=== PATIENT | female | born 1960 | race Caucasian/White ===

== ENCOUNTER 2019-12-15 10:08 | Emergency (ER) | payer BC ==
[~2019-12-15] VITALS: Ht 162.6 cm; Wt 104.5 kg
[2019-12-15] MEDS ORDERED: ondansetron/PF 4mg/2ml inj IV ONE (10:15)
[2019-12-15] MEDS ORDERED: normal saline 1000ML IV soln IVB ONE (10:15)
[2019-12-15 11:01] LABS: CLARITY,URINE CLEAR (Clear); COLOR,URINE YELLOW (Yellow); GLUCOSE, URINE NEGATIVE (Neg); KETONES,URINE NEGATIVE (Neg); LEUKOCYTE ESTERASE ,URINE NEGATIVE (Neg); NITRITES, URINE NEGATIVE (Neg); OCCULT BLOOD,URINE NEGATIVE (Neg); PROTEIN,URINE NEGATIVE (Neg); UROBILINOGEN,URINE 0.2 E.U/dL (0.2-1.0)
[2019-12-15 11:04] LABS: UA COLLECTION TYPE CLN CATCH MIDSTREAM
[2019-12-15 11:25] LABS: HEMOGLOBIN 12.6 g/dl (12.0-16.0); MEAN PLATELET VOLUME 7.2 FL (7.4-10.4)
[2019-12-15 11:26] LABS: ALANINE AMINOTRANSFERASE 19 U/L (12-78); ALBUMIN 3.7 G/DL (3.4-5.0); ALKALINE PHOSPHATASE 88 IU/L (46-116); ANION GAP 10 (8-16); ASPARTATE AMINO TRANSFERASE 14 U/L (10-37); BILIRUBIN,TOTAL 0.6 MG/DL (0.1-1.0); BLOOD UREA NITROGEN 12 MG/DL (7-18); BUN/CREATININE RATIO 12.2 (6.6-38.0); CHLORIDE 102 MMOL/L (99-107); CREATININE 0.98 MG/DL (0.40-0.90); GLUCOSE 102 MG/DL (70-104); LIPASE 53 U/L (73-393); POTASSIUM 3.6 MMOL/L (3.5-5.1); SODIUM 140 MMOL/L (135-145); TOTAL CARBON DIOXIDE 28.5 MMOL/L (24-32); TOTAL PROTEIN 7.4 G/DL (6.4-8.2); eGFR 58 ML/MIN
[2019-12-15 11:27] LABS: BASOPHILS % (AUTO) 0.4 % (0-1); EOSINOPHILS # (AUTO) 0.1 X10'3 (0-0.9); EOSINOPHILS % (AUTO) 0.8 % (0-6); HEMATOCRIT 37.4 % (35.0-45.0); LYMPHOCYTES # (AUTO) 1.9 X10'3 (1.1-4.8); LYMPHOCYTES % (AUTO) 22.3 % (21-51); MEAN CORPUSCULAR HEMOGLOBIN 31.8 PG (27.0-31.0); MEAN CORPUSCULAR HGB CONC 33.6 g/dL (33.0-36.5); MEAN CORPUSCULAR VOLUME 94.7 FL (78-98); MONOCYTES # (AUTO) 0.7 X10'3 (0-0.9); MONOCYTES % (AUTO) 8.6 % (2-12); NEUTROPHILS # (AUTO) 5.7 X10'3 (1.8-7.7); NEUTROPHILS % (AUTO) 67.9 % (42-75); PLATELET COUNT 257 X10'3 (140-440); RED BLOOD COUNT 3.95 X10'6 (4.20-5.60); RED CELL DISTRIBUTION WIDTH 13.3 % (11.5-14.5); WHITE BLOOD COUNT 8.3 X10'3 (4.5-11.0)
[2019-12-15] MEDS ORDERED: ONDA4TAB6 PO (11:33)
[2019-12-15] MEDS ORDERED: HYDR-4383 PO (11:33)
[2019-12-15] MEDS ORDERED: AMOX-422 PO (11:33)
[2019-12-15 12:16] VITALS: BP 148/77
== END 2019-12-15 12:48 | disposition home or self-care (01) ==
LOC: ER 10:08
DX: K57.92 Diverticulitis of intestine, part unspecified, without perforation or abscess without bleeding (principal); R10.32 Left lower quadrant pain; Z98.890 Other specified postprocedural states; Z79.2 Long term (current) use of antibiotics; Z79.899 Other long term (current) drug therapy
CPT/HCPCS: 36415; 74176; 80053; 81003; 83690; 85025; 96361; 96374; 99284; J2405; J7030

== ENCOUNTER 2020-01-06 09:50 | Inpatient (IN) | payer BC ==
[~2020-01-06] VITALS: Ht 160 cm; Wt 101.8 kg
[~2020-01-06 09:50] MED LIST: HYDR-4383 PO; ONDA4TAB6 PO
[2020-01-06] MEDS ORDERED: metroNIDAZOLE-Flagyl 750mg/NS 150 ML IV ONE (10:25)
[2020-01-06] MEDS ORDERED: normal saline 1000ML IV soln IVB ONE (10:25)
[2020-01-06] MEDS ORDERED: ciprofloxacin lact 400MG/200ML 200 ML IV ONE (10:25)
[2020-01-06 10:36] LABS: CLARITY,URINE CLEAR (Clear); COLOR,URINE YELLOW (Yellow); GLUCOSE, URINE NEGATIVE (Neg); KETONES,URINE NEGATIVE (Neg); LEUKOCYTE ESTERASE ,URINE NEGATIVE (Neg); NITRITES, URINE NEGATIVE (Neg); OCCULT BLOOD,URINE NEGATIVE (Neg); PROTEIN,URINE NEGATIVE (Neg); UROBILINOGEN,URINE 0.2 E.U/dL (0.2-1.0)
[2020-01-06 10:41] LABS: UA COLLECTION TYPE CLN CATCH MIDSTREAM
[2020-01-06] MEDS: diatr meglu/diatrizoate 30ml oral sol.-(3 dose) bottle PO SCH ×3 (10:43→11:55)
[2020-01-06 11:10] LABS: BASOPHILS % (AUTO) 0.7 % (0-1); EOSINOPHILS # (AUTO) 0.1 X10'3 (0-0.9); EOSINOPHILS % (AUTO) 2.2 % (0-6); HEMATOCRIT 40.8 % (35.0-45.0); HEMOGLOBIN 13.5 g/dl (12.0-16.0); LYMPHOCYTES # (AUTO) 1.3 X10'3 (1.1-4.8); LYMPHOCYTES % (AUTO) 23.6 % (21-51); MEAN CORPUSCULAR HEMOGLOBIN 31.5 PG (27.0-31.0); MEAN CORPUSCULAR HGB CONC 33.1 g/dL (33.0-36.5); MEAN CORPUSCULAR VOLUME 95.3 FL (78-98); MEAN PLATELET VOLUME 7.7 FL (7.4-10.4); MONOCYTES # (AUTO) 0.4 X10'3 (0-0.9); MONOCYTES % (AUTO) 6.8 % (2-12); NEUTROPHILS # (AUTO) 3.6 X10'3 (1.8-7.7); NEUTROPHILS % (AUTO) 66.7 % (42-75); PLATELET COUNT 299 X10'3 (140-440); RED BLOOD COUNT 4.28 X10'6 (4.20-5.60); RED CELL DISTRIBUTION WIDTH 13.2 % (11.5-14.5); WHITE BLOOD COUNT 5.4 X10'3 (4.5-11.0)
[2020-01-06 11:31] LABS: ALANINE AMINOTRANSFERASE 24 U/L (12-78); ALBUMIN/GLOBULIN RATIO 1.1 (1.1-1.5); ALKALINE PHOSPHATASE 80 IU/L (46-116); ANION GAP 9 (8-16); ASPARTATE AMINO TRANSFERASE 18 U/L (10-37); BILIRUBIN,TOTAL 0.4 MG/DL (0.1-1.0); BLOOD UREA NITROGEN 10 MG/DL (7-18); BUN/CREATININE RATIO 12.3 (6.6-38.0); CALCIUM 9.3 MG/DL (8.5-10.1); CHLORIDE 105 MMOL/L (99-107); CREATININE 0.81 MG/DL (0.40-0.90); GLUCOSE 111 MG/DL (70-104); LIPASE 63 U/L (73-393); POTASSIUM 3.7 MMOL/L (3.5-5.1); SODIUM 141 MMOL/L (135-145); TOTAL CARBON DIOXIDE 26.8 MMOL/L (24-32); TOTAL PROTEIN 7.7 G/DL (6.4-8.2); eGFR 72 ML/MIN
[2020-01-06] MEDS ORDERED: magnesium hydroxide 30ml (MOM) UD suspension PO PRN (12:05)
[2020-01-06] MEDS ORDERED: magnesium 4gm in 100ml NS 100 ML IV PRN (12:05)
[2020-01-06] MEDS ORDERED: mag hydrox/Alum hydrox/simeth 30ml oral suspension PO PRN (12:05)
[2020-01-06] MEDS ORDERED: magnesium 2GM in 50ml NS 50 ML IV PRN (12:05)
[2020-01-06] MEDS ORDERED: potassium CL 10mEq/100ml bag 100 ML IV PRN ×2 (12:05)
[2020-01-06] MEDS ORDERED: potassium Cl 20 mEq SR tablet PO PRN ×2 (12:05)
[2020-01-06] MEDS ORDERED: HYOS-26 SL (12:44)
[2020-01-06] MEDS ORDERED: ONDA4TAB12 PO (12:44)
[2020-01-06] MEDS ORDERED: ZINC100T2 PO (12:44)
[2020-01-06] MEDS ORDERED: CYAN500T64 PO (12:44)
[2020-01-06] MEDS ORDERED: POTA99TA18 PO (12:44)
[2020-01-06] MEDS ORDERED: iohexol 300mg/ml 100ml inj. ONE (12:47)
[2020-01-06] MEDS: normal saline 1000ml 1,000 ML IV SCH ×2 (13:25→22:05)
--- NOTE | 2020-01-06 15:28 | NUR ---
Attempted to call report, RN in room, RN to call back.
--- NOTE | 2020-01-06 15:35 | NUR ---
Received report from [facility] per phone call and had the opportunity to ask questions. Will assume pt care once on Med/Surg.
--- NOTE | 2020-01-06 15:50 | NUR ---
Pt arrived to unit via w/c, to Room 354C. Pt assessed, A&O x4, no s/sx distress. Pt oriented to room.
[2020-01-06 16:14] VITALS: BP 134/57
[2020-01-06] MEDS: hyoscyamine 0.125mg TAB.SUBL SL PRN (16:29)
[2020-01-06] MEDS: metroNIDAZOLE-Flagyl 500mg/NS 100 ML IV SCH (16:30)
[2020-01-06 18:00] VITALS: BP 143/72
--- NOTE | 2020-01-06 18:39 | NUR ---
Problems reprioritized. Patient report given, questions answered & plan of care reviewed with Halle FISHER.
--- NOTE | 2020-01-06 19:00 | NUR ---
Patient in room [facility]. I have received report from PHILLIP Camara and had the opportunity to ask questions and assume patient care.
[2020-01-06] MEDS: K and/or MAG REPLACEMENT MC SCH (20:00)
[2020-01-06] MEDS: enoxaparin 40mg/0.4ml syringe SQ SCH (20:49)
[2020-01-06] MEDS: ciprofloxacin lact 400MG/200ML 200 ML IV SCH (20:49)
[2020-01-06] MEDS ORDERED: haloperidol 5mg tablet PO PRN (21:15)
[2020-01-06] MEDS ORDERED: LORazepam 1 MG tablet PO PRN (21:15)
[2020-01-06] MEDS ORDERED: haloperidol lactate 5mg/ml inj IM PRN (21:15)
[2020-01-06] MEDS ORDERED: LORazepam 2 mg/ml vial IV PRN (21:15)
[2020-01-06] MEDS: thiamine inj. 100 MG, MVI, adult No.4 with vit. K 10 ML in dextrose 5% water 500ml 500 ML IV SCH ×3 (22:17)
[2020-01-06] MEDS ORDERED: thiamine inj. 100 MG in normal saline 100ml IV soln 100 ML IV ONE (23:00)
[2020-01-07] VITALS: BP 105/60
[2020-01-07] MEDS: hyoscyamine 0.125mg TAB.SUBL SL PRN (00:35)
[2020-01-07] MEDS: metroNIDAZOLE-Flagyl 500mg/NS 100 ML IV SCH ×3 (00:38→16:44)
[2020-01-07] MEDS: acetaminophen 325mg tablet PO PRN ×2 (04:14→22:10)
[2020-01-07] MEDS: normal saline 1000ml 1,000 ML IV SCH ×2 (05:09→16:44)
--- NOTE | 2020-01-07 06:00 | NUR ---
Patient in room [facility]. I have received report from PHILLIP Neri and had the opportunity to ask questions and assume patient care.
[2020-01-07 06:21] LABS: BASOPHILS % (AUTO) 0.8 % (0-1); EOSINOPHILS # (AUTO) 0.1 X10'3 (0-0.9); EOSINOPHILS % (AUTO) 2.9 % (0-6); HEMATOCRIT 34.5 % (35.0-45.0); HEMOGLOBIN 11.6 g/dl (12.0-16.0); LYMPHOCYTES # (AUTO) 1.4 X10'3 (1.1-4.8); MEAN CORPUSCULAR HEMOGLOBIN 31.9 PG (27.0-31.0); MEAN CORPUSCULAR HGB CONC 33.6 g/dL (33.0-36.5); MEAN PLATELET VOLUME 7.4 FL (7.4-10.4); MONOCYTES # (AUTO) 0.5 X10'3 (0-0.9); MONOCYTES % (AUTO) 9.6 % (2-12); NEUTROPHILS # (AUTO) 2.7 X10'3 (1.8-7.7); NEUTROPHILS % (AUTO) 57.7 % (42-75); PLATELET COUNT 238 X10'3 (140-440); RED BLOOD COUNT 3.63 X10'6 (4.20-5.60); RED CELL DISTRIBUTION WIDTH 13.1 % (11.5-14.5); WHITE BLOOD COUNT 4.7 X10'3 (4.5-11.0)
--- NOTE | 2020-01-07 06:38 | NUR ---
Problems reprioritized. Patient report given, questions answered & plan of care reviewed with PHILLIP Cabello.
[2020-01-07 06:50] LABS: ALANINE AMINOTRANSFERASE 16 U/L (12-78); ALKALINE PHOSPHATASE 59 IU/L (46-116); AMYLASE 49 U/L (25-115); ANION GAP 6 (8-16); ASPARTATE AMINO TRANSFERASE 12 U/L (10-37); BILIRUBIN,TOTAL 0.3 MG/DL (0.1-1.0); BLOOD UREA NITROGEN 4 MG/DL (7-18); BUN/CREATININE RATIO 5.3 (6.6-38.0); CALCIUM 8.4 MG/DL (8.5-10.1); CHLORIDE 109 MMOL/L (99-107); CREATININE 0.76 MG/DL (0.40-0.90); GLUCOSE 100 MG/DL (70-104); LIPASE 51 U/L (73-393); POTASSIUM 3.6 MMOL/L (3.5-5.1); SODIUM 141 MMOL/L (135-145); TOTAL CARBON DIOXIDE 25.9 MMOL/L (24-32); eGFR 77 ML/MIN
[2020-01-07] MEDS: cyanocobalamin 500mcg tablet PO SCH (07:25)
[2020-01-07] MEDS: thiamine inj. 100 MG, MVI, adult No.4 with vit. K 10 ML in dextrose 5% water 500ml 500 ML IV SCH ×3 (07:26)
[2020-01-07 08:00] VITALS: BP 133/67
[2020-01-07] MEDS: K and/or MAG REPLACEMENT MC SCH ×2 (08:00→19:59)
[2020-01-07] MEDS: ciprofloxacin lact 400MG/200ML 200 ML IV SCH ×2 (09:49→19:30)
[2020-01-07] MEDS: lactobacillus rhamnosus 10,000 MMU CELLS/CAPSULE PO SCH ×2 (09:50→19:29)
[2020-01-07 12:00] VITALS: BP 148/92
[2020-01-07 14:02] LABS: C DIFF ANTIGEN NEGATIVE (NEGATIVE); C DIFF SPECIMEN=DIARRHEA? ACCEPTABLE; C DIFFICILE TOXINS A&B NEGATIVE (Neg)
--- NOTE | 2020-01-07 16:53 | NUR ---
paged regarding converting infuvite to oral form.
[2020-01-07 18:15] VITALS: BP 138/72
--- NOTE | 2020-01-07 18:39 | NUR ---
Patient in room [facility]. I have received report from PHILLIP Cabello and had the opportunity to ask questions and assume patient care.
--- NOTE | 2020-01-07 18:39 | NUR ---
Patient in room [facility]. I have received report from PHILLIP Cabello and had the opportunity to ask questions and assume patient care.
--- NOTE | 2020-01-07 18:43 | NUR ---
Problems reprioritized. Patient report given, questions answered & plan of care reviewed with PHILLIP Neri.
[2020-01-07] MEDS: enoxaparin 40mg/0.4ml syringe SQ SCH (19:29)
[2020-01-08] MEDS: metroNIDAZOLE-Flagyl 500mg/NS 100 ML IV SCH ×2 (00:08→07:10)
[2020-01-08 00:23] VITALS: BP 130/58
[2020-01-08] MEDS: normal saline 1000ml 1,000 ML IV SCH (04:15)
[2020-01-08 06:08] LABS: BASOPHILS # (AUTO) 0.1 X10'3 (0-0.2); BASOPHILS % (AUTO) 1.1 % (0-1); EOSINOPHILS # (AUTO) 0.1 X10'3 (0-0.9); EOSINOPHILS % (AUTO) 2.4 % (0-6); HEMATOCRIT 33.7 % (35.0-45.0); HEMOGLOBIN 11.3 g/dl (12.0-16.0); LYMPHOCYTES # (AUTO) 1.6 X10'3 (1.1-4.8); LYMPHOCYTES % (AUTO) 32.3 % (21-51); MEAN CORPUSCULAR HEMOGLOBIN 31.3 PG (27.0-31.0); MEAN CORPUSCULAR HGB CONC 33.4 g/dL (33.0-36.5); MEAN CORPUSCULAR VOLUME 93.8 FL (78-98); MEAN PLATELET VOLUME 7.7 FL (7.4-10.4); MONOCYTES # (AUTO) 0.5 X10'3 (0-0.9); MONOCYTES % (AUTO) 9.5 % (2-12); NEUTROPHILS # (AUTO) 2.7 X10'3 (1.8-7.7); NEUTROPHILS % (AUTO) 54.7 % (42-75); PLATELET COUNT 227 X10'3 (140-440)
[2020-01-08] MEDS: acetaminophen 325mg tablet PO PRN (06:17)
[2020-01-08 06:26] LABS: ALANINE AMINOTRANSFERASE 17 U/L (12-78); ALBUMIN 2.9 G/DL (3.4-5.0); ALKALINE PHOSPHATASE 56 IU/L (46-116); AMYLASE 48 U/L (25-115); ANION GAP 6 (8-16); ASPARTATE AMINO TRANSFERASE 9 U/L (10-37); BILIRUBIN,TOTAL 0.3 MG/DL (0.1-1.0); BLOOD UREA NITROGEN 5 MG/DL (7-18); BUN/CREATININE RATIO 7.2 (6.6-38.0); CALCIUM 8.1 MG/DL (8.5-10.1); CHLORIDE 111 MMOL/L (99-107); CREATININE 0.69 MG/DL (0.40-0.90); GLUCOSE 90 MG/DL (70-104); LIPASE < 50 U/L (73-393); PHOSPHORUS 4.1 MG/DL (2.3-4.5); POTASSIUM 3.3 MMOL/L (3.5-5.1); SODIUM 143 MMOL/L (135-145); TOTAL CARBON DIOXIDE 26.4 MMOL/L (24-32); TOTAL PROTEIN 5.8 G/DL (6.4-8.2); eGFR 86 ML/MIN
--- NOTE | 2020-01-08 06:34 | NUR ---
Student documentation: I have reviewed and agree with all interventions, assessments performed and documented by Fabio Nicole Student Nurse. Student Medication Administration: For this medication-pass time frame, all medication were reviewed, dispensed, administered and documented per hospital policy by Fabio Nicole Student Nurse.
--- NOTE | 2020-01-08 06:34 | NUR ---
Problems reprioritized. Patient report given, questions answered & plan of care reviewed with PHILLIP Cabello.
--- NOTE | 2020-01-08 06:49 | NUR ---
Patient in room [facility]. I have received report from PHILLIP Neri and had the opportunity to ask questions and assume patient care.
[2020-01-08] MEDS: lactobacillus rhamnosus 10,000 MMU CELLS/CAPSULE PO SCH (07:10)
[2020-01-08] MEDS: cyanocobalamin 500mcg tablet PO SCH (07:10)
[2020-01-08 08:00] VITALS: BP 127/58
[2020-01-08] MEDS: thiamine inj. 100 MG, MVI, adult No.4 with vit. K 10 ML in dextrose 5% water 500ml 500 ML IV SCH ×3 (08:00)
[2020-01-08] MEDS: K and/or MAG REPLACEMENT MC SCH (08:00)
[2020-01-08] MEDS: ciprofloxacin lact 400MG/200ML 200 ML IV SCH (08:25)
--- NOTE | 2020-01-08 08:37 | NUR ---
Dr Mendez rounded gave OK for Dc with PO ABX. Hospitalist will follow up
[2020-01-08] MEDS ORDERED: LEVO750T46 PO (10:54)
[2020-01-08] MEDS ORDERED: LACT1CAP26 PO (10:54)
[2020-01-08] MEDS ORDERED: MULT-1085 PO (10:54)
[2020-01-08] MEDS ORDERED: METR-159 PO (10:54)
[2020-01-08] MEDS ORDERED: THIA50TA10 PO (10:54)
[2020-01-08] MEDS ORDERED: FOLI0.4T2 PO (10:54)
[2020-01-08 12:28] VITALS: BP 111/64
--- NOTE | 2020-01-08 13:20 | NUR ---
patient discharged home into the care of family. Patient alert, oriented, and appropriate for discharge. Patient given instructions on how to care for diverticulitis and to follow up with primary care provider. Patient left with all belongings. Patient IV removed. Patient verbalized understanding of discharge instructions and will follow up with primary care provider. Medications sent to [facility] in [place].
== END 2020-01-08 13:20 | disposition home or self-care (01) | DRG 392 ==
LOC: ER 09:51 → ED HOLD 12:01 → EDBEDREQ 15:00 → SUR 3N 15:49
PROVIDERS: ADMIT Family Medicine; ATTEND Family Medicine
PROC: BW211ZZ Computerized Tomography (CT Scan) of Abdomen and Pelvis using Low Osmolar Contrast (ICD-10-PCS; principal; 2020-01-06)
DX: K57.32 Diverticulitis of large intestine without perforation or abscess without bleeding (principal); K52.9 Noninfective gastroenteritis and colitis, unspecified; Z82.49 Family history of ischemic heart disease and other diseases of the circulatory system; Z83.3 Family history of diabetes mellitus; Z98.84 Bariatric surgery status; Z79.899 Other long term (current) drug therapy; Z72.89 Other problems related to lifestyle; Z71.41 Alcohol abuse counseling and surveillance of alcoholic
CPT/HCPCS: 36415; 71045; 74177; 80053; 81003; 82150; 82948; 83605; 83690; 83735; 84100; 84145; 85025; 87040; 87081; 87324; 87449; 93005; 96365; 97161; 99285; G0378; J0744; J1650; J3411; J3490; J7030; J7060; Q9963; Q9967

== ENCOUNTER 2025-01-10 15:01 | Outpatient (CLI) | payer MEDICARE, BC ==
[~2025-01-10 15:01] MED LIST changes: +CYAN500T71 PO; -HYDR-4383 PO; +HYOS-15 SL; +LACT1CAP26 PO; +MULT-1085 PO; +ONDA-243 PO; -ONDA4TAB6 PO; +POTA99TA18 PO; +THIA50TA10 PO; +ZINC100T9 PO
--- NOTE | 2025-01-10 17:10 | RADIOLOGY REPORT ---
PROCEDURE: MR MRI LUMBAR SPINE, MR MRI THORACIC SPINE Indication: LUMBAGO WITH SCIATICA, LEFT SIDE;MUSCLE WEAKNESS COMPARISON: None TECHNIQUE: Multiplanar multisequence images of the the thoracic, lumbar spine are obtained. FINDINGS: Lumbar spine: For the purpose of this examination, there are 5 lumbar vertebral body types counting from the lumbosacral junction. The lumbar vertebral body heights are maintained. Moderate multilevel disc space narrowing and desiccation. No abnormal marrow edema. Alignment grossly preserved. Conus terminates at L1 level. T12-L1: 2 mm disc protrusion. Mild facet and flavum hypertrophy. No spinal canal stenosis. No neural foraminal stenosis. L1-2: Small disc protrusion. Mild facet and flavum hypertrophy. No spinal canal, neural foraminal stenosis. L2-3: 3 mm disc protrusion. Mild facet and flavum hypertrophy. No spinal canal stenosis. Mild right neural foraminal stenosis. L3-4: 3 mm disc protrusion. Ngss-zn-cecknotp facet and flavum hypertrophy. No spinal canal stenosis. Mild bilateral neural foraminal stenosis. L4-5: 4 mm disc protrusion. Ivap-fh-fhvllqkd facet and flavum hypertrophy. No spinal canal stenosis. Jrbi-pb-kahjvvcx bilateral neural foraminal stenosis. L5-S1: 3 mm disc protrusion. Moderate facet and flavum hypertrophy. No spinal canal stenosis. Moderate left and mild right neural foraminal stenosis. Thoracic spine: The Thoracic vertebral body heights are maintained. Moderate Thoracic multilevel disc space narrowing. No abnormal marrow edema. Facet articulations intact. 3 mm disc protrusion at T11-12. The thoracic cord is normal in morphology and signal without evidence for high- grade spinal canal, neural foraminal stenosis. Imaged portion of the cervical spine on the labor relations officer views demonstrates cbzd-sy-uztbarna spinal canal stenosis at C5-6 and C6-7. IMPRESSION: Lumbar spine: Moderate lumbar degenerative disc disease. No significant spinal canal stenosis. Uxix-un-ghjswlmq lumbar multilevel neural foraminal stenosis as described above. Thoracic spine: Hnrn-gy-eyzciycf thoracic degenerative disc disease. No high-grade thoracic spinal canal, neural foraminal stenosis. Imaged portions of the cervical spine demonstrates tmzw-cs-eeykbhtp spinal canal stenosis at C5-6 and C6-7 which can be better characterized on MRI cervical spine.
--- NOTE | 2025-01-10 17:10 | RADIOLOGY REPORT ---
PROCEDURE: MR MRI LUMBAR SPINE, MR MRI THORACIC SPINE Indication: LUMBAGO WITH SCIATICA, LEFT SIDE;MUSCLE WEAKNESS COMPARISON: None TECHNIQUE: Multiplanar multisequence images of the the thoracic, lumbar spine are obtained. FINDINGS: Lumbar spine: For the purpose of this examination, there are 5 lumbar vertebral body types counting from the lumbosacral junction. The lumbar vertebral body heights are maintained. Moderate multilevel disc space narrowing and desiccation. No abnormal marrow edema. Alignment grossly preserved. Conus terminates at L1 level. T12-L1: 2 mm disc protrusion. Mild facet and flavum hypertrophy. No spinal canal stenosis. No neural foraminal stenosis. L1-2: Small disc protrusion. Mild facet and flavum hypertrophy. No spinal canal, neural foraminal stenosis. L2-3: 3 mm disc protrusion. Mild facet and flavum hypertrophy. No spinal canal stenosis. Mild right neural foraminal stenosis. L3-4: 3 mm disc protrusion. Ykmp-kd-fjjzcqbh facet and flavum hypertrophy. No spinal canal stenosis. Mild bilateral neural foraminal stenosis. L4-5: 4 mm disc protrusion. Infl-ib-vgnzknan facet and flavum hypertrophy. No spinal canal stenosis. Hneu-ej-hbivnrkd bilateral neural foraminal stenosis. L5-S1: 3 mm disc protrusion. Moderate facet and flavum hypertrophy. No spinal canal stenosis. Moderate left and mild right neural foraminal stenosis. Thoracic spine: The Thoracic vertebral body heights are maintained. Moderate Thoracic multilevel disc space narrowing. No abnormal marrow edema. Facet articulations intact. 3 mm disc protrusion at T11-12. The thoracic cord is normal in morphology and signal without evidence for high- grade spinal canal, neural foraminal stenosis. Imaged portion of the cervical spine on the tractor trailer operator views demonstrates bhim-pk-hcxhonlv spinal canal stenosis at C5-6 and C6-7. IMPRESSION: Lumbar spine: Moderate lumbar degenerative disc disease. No significant spinal canal stenosis. Jgdm-dk-zxoghyhq lumbar multilevel neural foraminal stenosis as described above. Thoracic spine: Wqtl-rs-awnxvhnq thoracic degenerative disc disease. No high-grade thoracic spinal canal, neural foraminal stenosis. Imaged portions of the cervical spine demonstrates vccb-ia-dpaojcup spinal canal stenosis at C5-6 and C6-7 which can be better characterized on MRI cervical spine.
== END 2025-01-10 23:59 | disposition home or self-care (01) ==
LOC: MRI02 15:01
PROVIDERS: ATTEND Nurse Practitioner Family
DX: M51.34 Other intervertebral disc degeneration, thoracic region (principal); G62.89 Other specified polyneuropathies; M62.81 Muscle weakness (generalized); M54.42 Lumbago with sciatica, left side; M48.02 Spinal stenosis, cervical region; M51.369 Other intervertebral disc degeneration, lumbar region without mention of lumbar back pain or lower extremity pain; M51.27 Other intervertebral disc displacement, lumbosacral region
CPT/HCPCS: 72146; 72148

== ENCOUNTER 2025-01-11 14:28 | Outpatient (CLI) | payer MEDICARE, BC ==
--- NOTE | 2025-01-11 16:19 | RADIOLOGY REPORT ---
Exam: US US NON VASCULAR Clinical History: SOFT TISSUE MASS,PAIN RT LEG Comparison: None Technique: Targeted sonographic evaluation of the soft tissues of the right leg was obtained utilizing grayscale and color Doppler imaging. Findings/Impression: There is no evidence for drainable collection. There is no evidence for solid or cystic mass in the site. No vascular abnormalities identified at this site. Subcutaneous soft-tissue edema is present in the region of interest.
== END 2025-01-11 23:59 | disposition home or self-care (01) ==
LOC: RAD 14:28
PROVIDERS: ATTEND Student in an Organized Health Care Education/Training Program
DX: R60.0 Localized edema (principal); M79.604 Pain in right leg; M79.89 Other specified soft tissue disorders
CPT/HCPCS: 76881